=== PATIENT | female | born 1970 | race Caucasian/White ===

== ENCOUNTER 2018-11-26 13:34 | Emergency (ER) | payer BC ==
[~2018-11-26] VITALS: Ht 162.6 cm; Wt 47.7 kg
[2018-11-26 16:24] LABS: URINE HCG NEGATIVE (NEG)
[2018-11-26 16:25] LABS: BASOPHILS % (AUTO) 0.2 % (0-1); EOSINOPHILS % (AUTO) 0.3 % (0-6); HEMATOCRIT 39.1 % (35.0-45.0); LYMPHOCYTES # (AUTO) 1.7 X10'3 (1.1-4.8); LYMPHOCYTES % (AUTO) 12.1 % (21-51); MEAN CORPUSCULAR HGB CONC 33.2 g/dL (33.0-36.5); MEAN CORPUSCULAR VOLUME 93.3 FL (78-98); MEAN PLATELET VOLUME 7.7 FL (7.4-10.4); MONOCYTES # (AUTO) 1.5 X10'3 (0-0.9); MONOCYTES % (AUTO) 10.4 % (2-12); NEUTROPHILS # (AUTO) 11.1 X10'3 (1.8-7.7); PLATELET COUNT 290 X10'3 (140-440); RED BLOOD COUNT 4.19 X10'6 (4.20-5.60); WHITE BLOOD COUNT 14.5 X10'3 (4.5-11.0)
[2018-11-26 16:25] LABS: CLARITY,URINE CLEAR (Clear); COLOR,URINE YELLOW (Yellow); GLUCOSE, URINE NEGATIVE (Neg); KETONES,URINE TRACE mg/dl (Neg); LEUKOCYTE ESTERASE ,URINE NEGATIVE (Neg); NITRITES, URINE NEGATIVE (Neg); OCCULT BLOOD,URINE NEGATIVE (Neg); PH,URINE 5.5 (4.8-8.0); PROTEIN,URINE NEGATIVE (Neg); UA COLLECTION TYPE CLN CATCH MIDSTREAM; UROBILINOGEN,URINE 0.2 E.U/dL (0.2-1.0)
[2018-11-26 16:44] LABS: ALANINE AMINOTRANSFERASE 17 U/L (12-78); ALBUMIN 4.1 G/DL (3.4-5.0); ALBUMIN/GLOBULIN RATIO 1.1 (1.1-1.5); ALKALINE PHOSPHATASE 55 IU/L (46-116); ASPARTATE AMINO TRANSFERASE 28 U/L (10-37); BLOOD UREA NITROGEN 10 MG/DL (7-18); BUN/CREATININE RATIO 13.7 (6.6-38.0); CALCIUM 9.1 MG/DL (8.5-10.1); CREATININE 0.73 MG/DL (0.40-0.90); GLUCOSE 97 MG/DL (70-104); TOTAL CARBON DIOXIDE 25.4 MMOL/L (24-32); eGFR 86 ML/MIN
[2018-11-26] MEDS ORDERED: iohexol 300mg/ml 100ml inj. ONE (17:02)
[2018-11-26 17:55] LABS: ANION GAP 9 (8-16); CHLORIDE 103 MMOL/L (99-107); POTASSIUM 4.4 MMOL/L (3.5-5.1); SODIUM 137 MMOL/L (135-145)
[2018-11-26] MEDS ORDERED: NO HOME MEDS (19:37)
[2018-11-26] MEDS ORDERED: acetaminophen 325mg tablet PO ONE (19:55)
[2018-11-26] MEDS ORDERED: ketorolac trometh. 30mg/ml inj. IV ONE (19:55)
[2018-11-26] MEDS ORDERED: ONDA4TAB6 PO (19:57)
[2018-11-26] MEDS ORDERED: HYDR-3965 PO (19:57)
[2018-11-26 20:05] VITALS: BP 132/72
== END 2018-11-26 20:06 | disposition home or self-care (01) ==
LOC: ER 13:34
DX: K42.9 Umbilical hernia without obstruction or gangrene (principal); M79.89 Other specified soft tissue disorders
CPT/HCPCS: 36415; 74177; 76705; 80053; 81003; 81025; 85025; 99284; J1885; Q9967